=== PATIENT | female | born 1980 | race Caucasian/White ===

== ENCOUNTER → 2017-02-11 | Outpatient (CLI) | payer OTHER ==
--- NOTE | 2017-02-11 13:25 | RAD ---
DATE: 02/11/2017 EXAM: DIGITAL DIAGNOSTIC BILATERAL, BREAST BILATERAL HISTORY: Bilateral breast lumps COMPARISON: None. This is a baseline study This study was interpreted with the benefit of Computerized Aided Detection (CAD). FINDINGS: Breast Density: HETERO The breast parenchyma Is heterogeneiously dense, which could reduce sensitivity of mammography. Breast parenchyma level C. There are areas of increased density seen on the cc views of both breasts and on the MLO view of the left breast. Additional images including a coned compression images of both breasts, rolled cc views of both breasts and an ML view of the left breast were obtained. On the additional views no definite abnormality is seen in the findings on the screening examination are most compatible with ablation artifact. The areas of palpable concern, 3 in the right breast and one on the left were evaluated with targeted ultrasound. In addition to views submitted by the technologist a real-time examination was performed by me. The right breast appears unremarkable. No mass or abnormality is seen. In the left breast there is a single area of slightly diminished echogenicity which is well-defined and has benign imaging characteristics on ultrasound. It is positioned at the 2:00 area of the breast 10 cm from the nipple. Follow-up targeted ultrasound in 6 months is advised. IMPRESSION: Benign mammographic findings. Follow-up mammography in 6 months of both breasts is suggested to establish stability. Follow-up targeted ultrasound of the left breast suggested in 6 months BI-RADS CATEGORY: 3 PROBABLE BENIGN FINDING(S-SHORT INTERVAL FOLLOW-UP SUGGESTED RECOMMENDED FOLLOW-UP: 6M 6 MONTH FOLLOW-UP PQRS compliance statement: Patient information was entered into a reminder system with a target due date August 14, 2017 for the next mammogram. Mammography is a sensitive method for finding small breast cancers, but it does not detect them all and is not a substitute for careful clinical examination. A negative mammogram does not negate a clinically suspicious finding and should not result in delay in biopsying a clinically suspicious abnormality. "Our facility is accredited by the [employer] Mammography Program."
== END | disposition home or self-care (01) ==
LOC: MAMMO 11:59
PROVIDERS: ATTEND General Practice
DX: N63 Unspecified lump in breast (principal)
CPT/HCPCS: 76641; G0204; 77066

== ENCOUNTER 2020-01-24 10:36 | Inpatient (IN) | payer OTHER ==
[~2020-01-24] VITALS: Ht 162.6 cm; Wt 92.5 kg
[2020-01-24] MEDS ORDERED: IV RINGERS,LACTATED 1000ML 1,000 ML IV SCH ×2 (10:42→12:51)
[2020-01-24 11:13] LABS: BILIRUBIN,URINE NEGATIVE (NEG); CLARITY,URINE CLEAR; COLOR,URINE YELLOW; NITRITE,URINE NEGATIVE (NEG); PH,URINE 7.5 (<5.0-8.0); PROTEIN,URINE NEGATIVE (NEG-TRACE); UROBILINOGEN,URINE 0.2 mg/dL (0.2 mg/dL)
[2020-01-24 11:18] LABS: BASO % 0 % (0-3); EOS # 0.1 x10^3/uL (0.0-0.7); EOS % 1 % (0-3); HEMATOCRIT 30.9 % (36.0-47.0); HEMOGLOBIN 10.3 g/dL (12.0-15.5); LYMPH # 1.4 x10^3/uL (1.0-4.8); LYMPH % 14 % (24-48); MEAN CORPUSCULAR HEMOGLOBIN 27 pg (25-35); MEAN CORPUSCULAR HGB CONC 33 g/dL (31-37); MEAN CORPUSCULAR VOLUME 81 fL (79-100); MONO # 0.7 x10^3/uL (0.0-1.1); MONO % 7 % (0-9); NEUT # 7.8 x10^3/uL (1.8-7.7); NEUT % 78 % (31-73); PLATELET COUNT 312 x10^3/uL (140-400); RED BLOOD COUNT 3.82 x10^6/uL (3.50-5.40)
[2020-01-24 11:24] LABS: BACTERIA,URINE FEW /HPF (0-FEW); RBC,URINE 0 /HPF (0-2); SQUAMOUS EPITHELIAL CELL,UR MOD /LPF
[2020-01-24 11:26] LABS: CREATININE,RANDOM URINE 62.7 mg/dL (Not Establ.)
[2020-01-24 11:48] LABS: ALBUMIN 2.5 g/dL (3.4-5.0); ALBUMIN/GLOBULIN RATIO 0.6 (1.0-1.7); CALCIUM 8.4 mg/dL (8.5-10.1); CREATININE 0.7 mg/dL (0.6-1.0); GFR 94.2; POTASSIUM 3.2 mmol/L (3.5-5.1); TOTAL BILIRUBIN 0.4 mg/dL (0.2-1.0); TOTAL PROTEIN 6.8 g/dL (6.4-8.2)
[2020-01-24] MEDS ORDERED: MAGNESIUM SULFATE 20GM 500 ML IV SCH (13:00)
[2020-01-24] MEDS ORDERED: TERBUTALINE 1 MG/ML VIAL. SQ PRN (13:00)
[2020-01-24] MEDS ORDERED: MAGNESIUM SULFATE 2GM 50 ML IV ONE (13:00)
[2020-01-24] MEDS ORDERED: MAGNESIUM SULFATE 4GM 100 ML IV ONE (13:00)
[2020-01-24] MEDS ORDERED: 0.9 % SODIUM CHLORIDE 10 ML DISP.SYRIN. IV PRN (13:00)
[2020-01-24] MEDS ORDERED: ONDANSETRON PF 4 MG/2 ML VIAL. IVP PRN (13:00)
[2020-01-24] MEDS ORDERED: OXYTOCIN 30 UNIT/500 ML PREMIX 500 ML IV PRN ×2 (13:00)
[2020-01-24] MEDS ORDERED: fentaNYL PF VIAL 100 MCG/2 ML VIAL IVP PRN (13:00)
[2020-01-24] MEDS ORDERED: LIDOCAINE 1% PF 30 ML VIAL. INJ PRN (13:00)
--- NOTE | 2020-01-24 13:13 | PDOC1 ---
OB - History Hx of Present Care: Good Care Ultrasounds: Normal mid trimester US Obstetrical Complications: Pre-eclampsia Medical Complications: None Past Family/Social History * Past Medical, Surgical, Family and Obstetric Histories reviewed from chart. Rubella: Immune RPR/VDRL: Negative GBS Status: Negative HBsAG: Negative OB - Chief Complaint & HPI Date of Admission: Date of Admission: Jan 24, 2020 at 10:36 Chief Complaint/History : 9 Para: 1 EGA: 36 Reason for admission: induction of labor (preeclampsia) Indication for induction: other (preeclampsia) Admission Nurse Assessment Rev: Yes OB - Admission Exam Physical Exam HEENT: Normal Heart: Regular Rate Lungs: Clear Abdomen: Gravid, Non tender, Soft Extremities: Edema Reflexes: Normal Cervical Dilatation: None Effacement: 50% Station: -3 Membranes: Intact Heart Rate: Normal Accelerations: Accelerations Present Decelerations: No decelerations Contractions on Admission: None Text A: 36 wks IUP AMA RPL Preeclampsia P: Admit management preeclampsia and induction with cervidil, then pitocin. Give corticosteroids for later lung maturity. Start magnesium sulfate for preeclampsia. SAUNDRA CELIS Jr, MD Jan 24, 2020 13:13
[2020-01-24] MEDS: BETAMET ACET&NA PHOS 30 MG/5 ML VIAL. IM SCH (13:42)
[2020-01-24] MEDS ORDERED: ASPIRIN ENTERIC COATED 81 MG TABLET.DR. PO SCH (14:15)
[2020-01-24 14:23] VITALS: BP 145/78
[2020-01-24] MEDS ORDERED: DINOPROSTONE 10 MG SUPP.VAG VG ONE (17:00)
[2020-01-24] MEDS ORDERED: diphenhydrAMINE HCL 25 MG CAPSULE PO PRN (22:00)
[2020-01-24] MEDS ORDERED: ACETAMINOPHEN 500 MG TABLET PO PRN (22:00)
[2020-01-24] MEDS: BUTALB/APAP/CAFEIN 50/325/40MG TABLET. PO PRN (23:26)
[2020-01-24] MEDS: MAGNESIUM SULFATE 20GM 500 ML IV SCH (23:27)
[2020-01-25] MEDS: BUTALB/APAP/CAFEIN 50/325/40MG TABLET. PO PRN (09:27)
[2020-01-25] MEDS: MAGNESIUM SULFATE 20GM 500 ML IV SCH ×2 (10:27→21:19)
[2020-01-25 11:03] LABS: BASO % 0 % (0-3); EOS % 0 % (0-3); HEMATOCRIT 31.4 % (36.0-47.0); HEMOGLOBIN 10.3 g/dL (12.0-15.5); LYMPH # 1.1 x10^3/uL (1.0-4.8); LYMPH % 9 % (24-48); MEAN CORPUSCULAR HEMOGLOBIN 27 pg (25-35); MEAN CORPUSCULAR HGB CONC 33 g/dL (31-37); MEAN CORPUSCULAR VOLUME 81 fL (79-100); MONO # 0.8 x10^3/uL (0.0-1.1); MONO % 6 % (0-9); NEUT % 85 % (31-73); PLATELET COUNT 328 x10^3/uL (140-400); RED BLOOD COUNT 3.87 x10^6/uL (3.50-5.40); RED CELL DISTRIBUTION WIDTH 13.6 % (11.5-14.5); WHITE BLOOD COUNT 12.9 x10^3/uL (4.0-11.0)
[2020-01-25 11:13] LABS: ALBUMIN 2.4 g/dL (3.4-5.0); ALBUMIN/GLOBULIN RATIO 0.6 (1.0-1.7); CALCIUM 6.7 mg/dL (8.5-10.1); CREATININE 0.7 mg/dL (0.6-1.0); GFR 94.2; TOTAL BILIRUBIN 0.3 mg/dL (0.2-1.0); TOTAL PROTEIN 6.7 g/dL (6.4-8.2)
[2020-01-25 11:14] LABS: POTASSIUM 2.9 mmol/L (3.5-5.1)
[2020-01-25] MEDS: BETAMET ACET&NA PHOS 30 MG/5 ML VIAL. IM SCH (12:51)
[2020-01-25] MEDS ORDERED: CITRIC ACID/SODIUM CITRATE 30 ML SOLUTION. ONE (16:52)
[2020-01-25] MEDS ORDERED: ceFAZolin 2GM PREMIX 2 GM/50 ML BAG IV ONE (17:00)
[2020-01-25] MEDS ORDERED: CITRIC ACID/SODIUM CITRATE 30 ML SOLUTION. PO ONE (17:00)
[2020-01-25] MEDS ORDERED: MORPHINE PF 10 MG/10 ML AMPUL. ONE (17:15)
[2020-01-25] MEDS ORDERED: PHENYLEPHRINE in 0.9% NACL PF 1 MG/10 ML SYRINGE. IV ONE (17:15)
[2020-01-25] MEDS ORDERED: ePHEDrine PF IN SALINE 50 MG/10 ML SYRINGE. IV ONE (17:15)
[2020-01-25] MEDS ORDERED: OXYTOCIN 10 UNIT/ML VIAL. ONE (17:15)
[2020-01-25] MEDS ORDERED: ONDANSETRON PF 4 MG/2 ML VIAL. ONE (17:16)
[2020-01-25] MEDS ORDERED: DEXAMETHASONE SOD PHOS 4 MG/ML VIAL ONE (17:16)
[2020-01-25] MEDS ORDERED: fentaNYL PF VIAL 100 MCG/2 ML VIAL ONE (17:16)
--- NOTE | 2020-01-25 18:22 | PDOC4 ---
OB Operative Note Date: Jan 25, 2020 PRE OP DIAGNOSIS: NRFHT (36 wks IUP, Preeclampsia, Desires BTL) POST OP DIAGNOSIS: Other (Same) OPERATION PERFORMED: L KTCS (and BTL) Surgeon Dr. Parra Anesthesia: Regional (Spinal) Blood Loss 700 ml Specimen placenta and infant OB Findings: Position (Vertex), Sex (Female), (8/9), Weight (6 Lb 4 oz), Nuchal Cord (x1) Complications none Additional Remarks pt. SAUNDRA Gonzalez Jr, MD Jan 25, 2020 18:22
[2020-01-25] MEDS ORDERED: OXYTOCIN 30 UNIT/500 ML PREMIX 500 ML IV PRN (18:30)
[2020-01-25] MEDS ORDERED: DOCUSATE SODIUM 100 MG CAPSULE. PO PRN (18:30)
[2020-01-25] MEDS ORDERED: ZOLPIDEM 5 MG TABLET. PO PRN (18:30)
[2020-01-25] MEDS ORDERED: diphenhydrAMINE ORAL ELIXIR 12.5 MG/5 ML ML PO PRN (18:30)
[2020-01-25] MEDS ORDERED: MAG HYDROX/ALUMINUM HYD/SIMETH 30 ML ORAL.SUSP PO PRN (18:30)
[2020-01-25] MEDS ORDERED: ONDANSETRON PF 4 MG/2 ML VIAL. IV PRN (18:30)
[2020-01-25] MEDS ORDERED: 0.9 % SODIUM CHLORIDE 10 ML DISP.SYRIN. IV PRN (18:30)
[2020-01-25] MEDS ORDERED: SIMETHICONE 80 MG TAB.CHEW PO PRN (18:30)
[2020-01-25] MEDS ORDERED: KETOROLAC 30 MG/ML VIAL. IV PRN (18:45)
--- NOTE | 2020-01-25 18:47 | OP ---
DATE OF SURGERY: 01/25/2020 PREOPERATIVE DIAGNOSES: 1. 36 weeks' intrauterine . 2. Preeclampsia. 3. intolerance to labor. 4. Desires bilateral tubal ligation. POSTOPERATIVE DIAGNOSES: 1. 36 weeks' intrauterine . 2. Preeclampsia. 3. intolerance to labor. 4. Desires bilateral tubal ligation. PROCEDURE: Primary low transverse section and bilateral tubal ligation. SURGEON: Saundra Parra MD ANESTHESIA: Spinal. ESTIMATED BLOOD LOSS: 700 mL. COMPLICATIONS: None. FINDINGS: Viable female infant, Apgars 8 and 9, weight 6 pounds 4 ounces. Three-vessel cord placenta delivered manually intact. Nuchal cord x 1. SUMMARY: A 39-year-old 9, para 1 at 36 weeks, presented for induction due to preeclampsia. The patient had dilated only to 2 cm and began having intolerance of labor. The patient was on magnesium for preeclampsia. She was counseled on the risks, benefits and expectations of primary low transverse section and bilateral tubal ligation as well as the failure rate and voiced clear understanding to proceed. DESCRIPTION OF PROCEDURE: The patient was taken to surgery suite and placed in dorsal supine position. She was prepped with ChloraPrep and draped in sterile fashion. After adequate anesthesia, Pfannenstiel skin incision was made with scalpel down to and through the fascia. The fascia was extended laterally using curved Jeffries scissors. The superior edge of fascia was grasped with two Morales clamps and dissected free of the abdominal rectus muscles using blunt dissection along with Bovie cautery. The same process took place inferiorly. The abdominal rectus muscle dissected bluntly at the midline. The peritoneum was grasped with 2 hemostats and entered sharply with Metzenbaum scissors. This incision was extended superiorly as well as inferiorly using Metzenbaum scissors. The Amado ring retractor was placed. A low transverse hysterotomy incision was made with scalpel down to the infant. Hysterotomy incision was extended laterally and superiorly digitally. With the aid of fundal pressure, the 's head was delivered in a smooth atraumatic manner. Nuchal cord x 1 was visualized and reduced. With additional fundal pressure, the anterior shoulder was delivered followed by posterior shoulder and rest of female was delivered. The was suctioned with a bulb syringe orally and nasally, umbilical cord was clamped twice and cut and viable female infant was handed to waiting nursing staff. Umbilical cord blood as well as arterial pH were obtained. Three-vessel cord placenta was delivered manually intact. The uterus was then exteriorized and cleared of clot and debris with a moist lap. Hysterotomy incision was reapproximated using #1 Vicryl suture in running locked fashion. The uterus palpated firm. Fallopian tubes and ovaries appeared normal bilaterally. The right fallopian tube was grasped with a Lore, undermined in the mesosalpinx with Bovie cautery. Proximal and distal ends of the fallopian tube were tied with plain gut suture. The mid section of fallopian tube was excised using Metzenbaum scissors. Two telescoping ends were visualized and hemostatic. Same process took place with left adnexa. The uterus was then returned to the abdomen. Pericolic gutters were cleared of clot and debris with moist lap. Hysterotomy incision was reviewed. [id number] suture was placed in the midline of the hysterotomy incision for better hemostasis. The Amado ring retractor was removed. The peritoneum was reapproximated with #1 Vicryl suture in running fashion. Abdominal rectus muscle was reapproximated using #1 Vicryl suture in running fashion. The fascia was reapproximated using Stratafix in a running fashion. Skin was reapproximated using 4-0 Vicryl suture in subcuticular manner. The patient tolerated the procedure well and was taken to recovery room in stable condition. Sponge and needle count correct x 3. SAUNDRA PARRA MD DR: REGINE/lorie JOB#: [id number] / [id number]
[2020-01-25 20:35] VITALS: BP 137/69
[2020-01-25 21:45] VITALS: BP 133/69
[2020-01-25 22:45] VITALS: BP 103/51
[2020-01-25 23:45] VITALS: BP 131/58
[2020-01-26] MEDS: KETOROLAC 30 MG/ML VIAL. IV PRN ×3 (00:06→17:59)
[2020-01-26 00:45] VITALS: BP 130/68
[2020-01-26 02:45] VITALS: BP 104/66
[2020-01-26 03:45] VITALS: BP 118/64
[2020-01-26 04:34] LABS: BASO % 0 % (0-3); EOS % 0 % (0-3); HEMATOCRIT 26.6 % (36.0-47.0); HEMOGLOBIN 8.7 g/dL (12.0-15.5); LYMPH # 1.2 x10^3/uL (1.0-4.8); LYMPH % 6 % (24-48); MEAN CORPUSCULAR HEMOGLOBIN 27 pg (25-35); MEAN CORPUSCULAR HGB CONC 33 g/dL (31-37); MEAN CORPUSCULAR VOLUME 82 fL (79-100); MONO # 1.1 x10^3/uL (0.0-1.1); MONO % 5 % (0-9); NEUT # 18.5 x10^3/uL (1.8-7.7); NEUT % 89 % (31-73); PLATELET COUNT 318 x10^3/uL (140-400); RED BLOOD COUNT 3.26 x10^6/uL (3.50-5.40); RED CELL DISTRIBUTION WIDTH 13.4 % (11.5-14.5); WHITE BLOOD COUNT 20.8 x10^3/uL (4.0-11.0)
[2020-01-26 04:45] VITALS: BP 106/77
[2020-01-26 04:49] LABS: ALBUMIN/GLOBULIN RATIO 0.5 (1.0-1.7); CALCIUM 6.7 mg/dL (8.5-10.1); CREATININE 0.8 mg/dL (0.6-1.0); GFR 80.7; POTASSIUM 3.5 mmol/L (3.5-5.1); TOTAL BILIRUBIN 0.2 mg/dL (0.2-1.0); TOTAL PROTEIN 5.9 g/dL (6.4-8.2)
[2020-01-26 05:06] LABS: % BANDS 1 % (0-9); % LYMPHS 6 % (24-48); % METAS 1 % (0-0); % SEGS 92 % (35-66); PLT ESTIMATE ADEQUATE (ADEQUATE); TOXIC GRANULATION SLIGHT
[2020-01-26] MEDS: BUTALB/APAP/CAFEIN 50/325/40MG TABLET. PO PRN (05:39)
[2020-01-26 05:45] VITALS: BP 127/67
[2020-01-26 06:45] VITALS: BP 114/61
[2020-01-26] MEDS ORDERED: fentaNYL PF VIAL 100 MCG/2 ML VIAL IV PRN ×2 (07:00)
[2020-01-26] MEDS ORDERED: HYDROmorphone 2 MG/ML VIAL IV PRN (07:00)
[2020-01-26] MEDS ORDERED: IV RINGERS,LACTATED 1000ML 1,000 ML IV SCH (07:00)
[2020-01-26] MEDS ORDERED: ONDANSETRON PF 4 MG/2 ML VIAL. IV PRN (07:00)
[2020-01-26] MEDS ORDERED: LIDOCAINE 1% PF 2 ML VIAL. ID PRN (07:00)
[2020-01-26] MEDS ORDERED: MORPHINE SULFATE 2 MG/ML VIAL. IV PRN (07:00)
[2020-01-26] MEDS ORDERED: PROCHLORPERAZINE 10 MG/2 ML VIAL. IV PRN (07:00)
--- NOTE | 2020-01-26 08:43 | PDOC ---
OB Progress Note Date of Service 01/26/20 Time of Evaluation 0840 Notes Pt. feeling well. No complaints. Lab Laboratory Tests Test 01/24/20 10:43 01/24/20 11:00 01/24/20 13:15 01/24/20 14:50 Urine Collection Type Unknown Urine Color Yellow Urine Clarity Clear Urine pH 7.5 (<5.0-8.0) Urine Specific Adrian 1.010 (1.000-1.030) Urine Protein Negative mg/dL (NEG-TRACE) Urine Glucose (UA) Negative mg/dL (NEG) Urine Ketones (Stick) Negative mg/dL (NEG) Urine Blood Negative (NEG) Urine Nitrite Negative (NEG) Urine Bilirubin Negative (NEG) Urine Urobilinogen Dipstick 0.2 mg/dL (0.2 mg/dL) Urine Leukocyte Esterase Moderate (NEG) Urine RBC 0 /HPF (0-2) Urine WBC 5-10 /HPF (0-4) Urine Squamous Epithelial Cells Mod /LPF Urine Bacteria Few /HPF (0-FEW) Urine Mucus Slight /LPF Urine Random Creatinine 62.7 mg/dL (Not Establ.) Urine Random Total Protein 16.0 mg/dL (Not Establ.) Urine Protein/Creatinine Ratio 255 mg/g (0-200) White Blood Count 10.0 x10^3/uL (4.0-11.0) Red Blood Count 3.82 x10^6/uL (3.50-5.40) Hemoglobin 10.3 g/dL (12.0-15.5) Hematocrit 30.9 % (36.0-47.0) Mean Corpuscular Volume 81 fL (79-100) Mean Corpuscular Hemoglobin 27 pg (25-35) Mean Corpuscular Hemoglobin Concent 33 g/dL (31-37) Red Cell Distribution Width 13.0 % (11.5-14.5) Platelet Count 312 x10^3/uL (140-400) Neutrophils (%) (Auto) 78 % (31-73) Lymphocytes (%) (Auto) 14 % (24-48) Monocytes (%) (Auto) 7 % (0-9) Eosinophils (%) (Auto) 1 % (0-3) Basophils (%) (Auto) 0 % (0-3) Neutrophils # (Auto) 7.8 x10^3/uL (1.8-7.7) Lymphocytes # (Auto) 1.4 x10^3/uL (1.0-4.8) Monocytes # (Auto) 0.7 x10^3/uL (0.0-1.1) Eosinophils # (Auto) 0.1 x10^3/uL (0.0-0.7) Basophils # (Auto) 0.0 x10^3/uL (0.0-0.2) Sodium Level 139 mmol/L (136-145) Potassium Level 3.2 mmol/L (3.5-5.1) Chloride Level 105 mmol/L (98-107) Carbon Dioxide Level 22 mmol/L (21-32) Anion Gap 12 (6-14) Blood Urea Nitrogen 6 mg/dL (7-20) Creatinine 0.7 mg/dL (0.6-1.0) Estimated GFR (Cockcroft-Gault) 94.2 BUN/Creatinine Ratio 9 (6-20) Glucose Level 89 mg/dL (70-99) Calcium Level 8.4 mg/dL (8.5-10.1) Total Bilirubin 0.4 mg/dL (0.2-1.0) Aspartate Amino Transf (AST/SGOT) 18 U/L (15-37) Alanine Aminotransferase (ALT/SGPT) 16 U/L (14-59) Alkaline Phosphatase 175 U/L (46-116) Total Protein 6.8 g/dL (6.4-8.2) Albumin 2.5 g/dL (3.4-5.0) Albumin/Globulin Ratio 0.6 (1.0-1.7) Treponema pallidum Antibody Nonreactive (Nonreactive) Coronavirus (PCR) Not detected (Not Detected) SARS-CoV-2 Antigen (Rapid) Negative (NEGATIVE) Test 01/25/20 10:23 01/26/20 03:20 White Blood Count 12.9 x10^3/uL (4.0-11.0) 20.8 x10^3/uL (4.0-11.0) Red Blood Count 3.87 x10^6/uL (3.50-5.40) 3.26 x10^6/uL (3.50-5.40) Hemoglobin 10.3 g/dL (12.0-15.5) 8.7 g/dL (12.0-15.5) Hematocrit 31.4 % (36.0-47.0) 26.6 % (36.0-47.0) Mean Corpuscular Volume 81 fL (79-100) 82 fL (79-100) Mean Corpuscular Hemoglobin 27 pg (25-35) 27 pg (25-35) Mean Corpuscular Hemoglobin Concent 33 g/dL (31-37) 33 g/dL (31-37) Red Cell Distribution Width 13.6 % (11.5-14.5) 13.4 % (11.5-14.5) Platelet Count 328 x10^3/uL (140-400) 318 x10^3/uL (140-400) Neutrophils (%) (Auto) 85 % (31-73) 89 % (31-73) Lymphocytes (%) (Auto) 9 % (24-48) 6 % (24-48) Monocytes (%) (Auto) 6 % (0-9) 5 % (0-9) Eosinophils (%) (Auto) 0 % (0-3) 0 % (0-3) Basophils (%) (Auto) 0 % (0-3) 0 % (0-3) Neutrophils # (Auto) 11.0 x10^3/uL (1.8-7.7) 18.5 x10^3/uL (1.8-7.7) Lymphocytes # (Auto) 1.1 x10^3/uL (1.0-4.8) 1.2 x10^3/uL (1.0-4.8) Monocytes # (Auto) 0.8 x10^3/uL (0.0-1.1) 1.1 x10^3/uL (0.0-1.1) Eosinophils # (Auto) 0.0 x10^3/uL (0.0-0.7) 0.0 x10^3/uL (0.0-0.7) Basophils # (Auto) 0.0 x10^3/uL (0.0-0.2) 0.0 x10^3/uL (0.0-0.2) Sodium Level 140 mmol/L (136-145) 135 mmol/L (136-145) Potassium Level 2.9 mmol/L (3.5-5.1) 3.5 mmol/L (3.5-5.1) Chloride Level 105 mmol/L (98-107) 102 mmol/L (98-107) Carbon Dioxide Level 23 mmol/L (21-32) 22 mmol/L (21-32) Anion Gap 12 (6-14) 11 (6-14) Blood Urea Nitrogen 4 mg/dL (7-20) 4 mg/dL (7-20) Creatinine 0.7 mg/dL (0.6-1.0) 0.8 mg/dL (0.6-1.0) Estimated GFR (Cockcroft-Gault) 94.2 80.7 BUN/Creatinine Ratio 6 (6-20) 5 (6-20) Glucose Level 119 mg/dL (70-99) 115 mg/dL (70-99) Calcium Level 6.7 mg/dL (8.5-10.1) 6.7 mg/dL (8.5-10.1) Total Bilirubin 0.3 mg/dL (0.2-1.0) 0.2 mg/dL (0.2-1.0) Aspartate Amino Transf (AST/SGOT) 15 U/L (15-37) 19 U/L (15-37) Alanine Aminotransferase (ALT/SGPT) 14 U/L (14-59) 9 U/L (14-59) Alkaline Phosphatase 168 U/L (46-116) 148 U/L (46-116) Total Protein 6.7 g/dL (6.4-8.2) 5.9 g/dL (6.4-8.2) Albumin 2.4 g/dL (3.4-5.0) 2.0 g/dL (3.4-5.0) Albumin/Globulin Ratio 0.6 (1.0-1.7) 0.5 (1.0-1.7) Segmented Neutrophils % 92 % (35-66) Band Neutrophils % 1 % (0-9) Lymphocytes % 6 % (24-48) Metamyelocytes % 1 % (0-0) Toxic Granulation Slight Platelet Estimate Adequate (ADEQUATE) Laboratory Tests Test 01/25/20 10:23 01/26/20 03:20 White Blood Count 12.9 x10^3/uL (4.0-11.0) 20.8 x10^3/uL (4.0-11.0) Red Blood Count 3.87 x10^6/uL (3.50-5.40) 3.26 x10^6/uL (3.50-5.40) Hemoglobin 10.3 g/dL (12.0-15.5) 8.7 g/dL (12.0-15.5) Hematocrit 31.4 % (36.0-47.0) 26.6 % (36.0-47.0) Mean Corpuscular Volume 81 fL (79-100) 82 fL (79-100) Mean Corpuscular Hemoglobin 27 pg (25-35) 27 pg (25-35) Mean Corpuscular Hemoglobin Concent 33 g/dL (31-37) 33 g/dL (31-37) Red Cell Distribution Width 13.6 % (11.5-14.5) 13.4 % (11.5-14.5) Platelet Count 328 x10^3/uL (140-400) 318 x10^3/uL (140-400) Neutrophils (%) (Auto) 85 % (31-73) 89 % (31-73) Lymphocytes (%) (Auto) 9 % (24-48) 6 % (24-48) Monocytes (%) (Auto) 6 % (0-9) 5 % (0-9) Eosinophils (%) (Auto) 0 % (0-3) 0 % (0-3) Basophils (%) (Auto) 0 % (0-3) 0 % (0-3) Neutrophils # (Auto) 11.0 x10^3/uL (1.8-7.7) 18.5 x10^3/uL (1.8-7.7) Lymphocytes # (Auto) 1.1 x10^3/uL (1.0-4.8) 1.2 x10^3/uL (1.0-4.8) Monocytes # (Auto) 0.8 x10^3/uL (0.0-1.1) 1.1 x10^3/uL (0.0-1.1) Eosinophils # (Auto) 0.0 x10^3/uL (0.0-0.7) 0.0 x10^3/uL (0.0-0.7) Basophils # (Auto) 0.0 x10^3/uL (0.0-0.2) 0.0 x10^3/uL (0.0-0.2) Sodium Level 140 mmol/L (136-145) 135 mmol/L (136-145) Potassium Level 2.9 mmol/L (3.5-5.1) 3.5 mmol/L (3.5-5.1) Chloride Level 105 mmol/L (98-107) 102 mmol/L (98-107) Carbon Dioxide Level 23 mmol/L (21-32) 22 mmol/L (21-32) Anion Gap 12 (6-14) 11 (6-14) Blood Urea Nitrogen 4 mg/dL (7-20) 4 mg/dL (7-20) Creatinine 0.7 mg/dL (0.6-1.0) 0.8 mg/dL (0.6-1.0) Estimated GFR (Cockcroft-Gault) 94.2 80.7 BUN/Creatinine Ratio 6 (6-20) 5 (6-20) Glucose Level 119 mg/dL (70-99) 115 mg/dL (70-99) Calcium Level 6.7 mg/dL (8.5-10.1) 6.7 mg/dL (8.5-10.1) Total Bilirubin 0.3 mg/dL (0.2-1.0) 0.2 mg/dL (0.2-1.0) Aspartate Amino Transf (AST/SGOT) 15 U/L (15-37) 19 U/L (15-37) Alanine Aminotransferase (ALT/SGPT) 14 U/L (14-59) 9 U/L (14-59) Alkaline Phosphatase 168 U/L (46-116) 148 U/L (46-116) Total Protein 6.7 g/dL (6.4-8.2) 5.9 g/dL (6.4-8.2) Albumin 2.4 g/dL (3.4-5.0) 2.0 g/dL (3.4-5.0) Albumin/Globulin Ratio 0.6 (1.0-1.7) 0.5 (1.0-1.7) Segmented Neutrophils % 92 % (35-66) Band Neutrophils % 1 % (0-9) Lymphocytes % 6 % (24-48) Metamyelocytes % 1 % (0-0) Toxic Granulation Slight Platelet Estimate Adequate (ADEQUATE) Medications Current Medications Ringer's Solution 1,000 ml @ 125 mls/hr Q8H IV Last administered on 01/24/20at 13:41; Start 01/24/20 at 10:42 Sodium Chloride (Normal Saline Flush) 3 ml QSHIFT PRN IV AFTER MEDS AND BLOOD DRAWS; Start 01/24/20 at 13:00; Stop 01/25/20 at 18:35; Status DC Ringer's Solution 1,000 ml @ 125 mls/hr Q8H IV Last administered on 01/24/20at 21:37; Start 01/24/20 at 12:51 Fentanyl Citrate (Fentanyl 2ml Vial) 100 mcg PRN Q20MIN PRN IVP Labor pain Last administered on 01/25/20at 16:01; Start 01/24/20 at 13:00 Ondansetron HCl (Zofran) 4 mg PRN Q4HRS PRN IVP NAUSEA/VOMITING; Start 01/24/20 at 13:00; Stop 01/25/20 at 18:35; Status DC Terbutaline Sulfate (Brethine) 0.25 mg 1X PRN PRN SQ SEE COMMENTS; Start 01/24/20 at 13:00; Stop 01/25/20 at 12:59; Status DC Lidocaine HCl (Xylocaine 1% Pf 30ml Vial) 30 ml 1X PRN PRN INJ SEE COMMENTS; Start 01/24/20 at 13:00; Stop 01/26/20 at 12:59 Oxytocin/Sodium Chloride 500 ml @ 0 mls/hr CONT PRN IV SEE I/O RECORD Last administered on 01/25/20at 06:04; Start 01/24/20 at 13:00 Oxytocin/Sodium Chloride 500 ml @ 0 mls/hr CONT PRN PRN IV Post delivery bleeding; Start 01/24/20 at 13:00 Magnesium Sulfate 500 ml @ 0 mls/hr Q0M IV ; Start 01/24/20 at 13:00; Stop 01/24/20 at 14:05; Status DC Magnesium Sulfate 50 ml @ 25 mls/hr 1X ONCE IV Last administered on 01/24/20at 13:42; Start 01/24/20 at 13:00; Stop 01/24/20 at 14:59; Status DC Magnesium Sulfate 100 ml @ 25 mls/hr 1X ONCE IV Last administered on 01/24/20at 13:43; Start 01/24/20 at 13:00; Stop 01/24/20 at 16:59; Status DC Betamethasone Sodium Phosphate (Celestone Soluspan) 12 mg Q24H IM Last administered on 01/25/20at 12:51; Start 01/24/20 at 13:30; Stop 01/26/20 at 13:29 Magnesium Sulfate 500 ml @ 50 mls/hr Q10H IV Last administered on 01/25/20at 21:19; Start 01/24/20 at 14:00 Aspirin (Ecotrin) 81 mg DAILYWBKFT PO ; Start 01/24/20 at 14:15; Stop 01/27/20 at 08:20 Dinoprostone (Cervidil) 10 mg 1X ONCE VG Last administered on 01/24/20at 17:30; Start 01/24/20 at 17:00; Stop 01/24/20 at 17:01; Status DC Diphenhydramine HCl (Benadryl) 50 mg PRN QHS PRN PO INSOMNIA Last administered on 01/24/20at 22:02; Start 01/24/20 at 22:00 Acetaminophen (Tylenol) 1,000 mg PRN Q6HRS PRN PO HEADACHE Last administered on 01/24/20at 22:02; Start 01/24/20 at 22:00 Acetaminophen/ Butalbital/ Caffeine (Fioricet) 2 tab PRN Q6HRS PRN PO MIGRAINE HEADACHE Last administered on 01/26/20at 05:39; Start 01/24/20 at 23:15 Ondansetron HCl (Zofran) 4 mg PRN Q6HRS PRN IV NAUSEA/VOMITING Last administered on 01/25/20at 16:02; Start 01/26/20 at 07:00; Stop 01/25/20 at 18:35; Status DC Fentanyl Citrate (Fentanyl 2ml Vial) 25 mcg PRN Q5MIN PRN IV MILD PAIN 1-3; Start 01/26/20 at 07:00; Stop 01/26/20 at 20:00 Fentanyl Citrate (Fentanyl 2ml Vial) 50 mcg PRN Q5MIN PRN IV MODERATE TO SEVERE PAIN; Start 01/26/20 at 07:00; Stop 01/26/20 at 20:00 Morphine Sulfate (Morphine Sulfate) 1 mg PRN Q10MIN PRN IV SEVERE PAIN 7-10; Start 01/26/20 at 07:00; Stop 01/26/20 at 20:00 Ringer's Solution 1,000 ml @ 30 mls/hr Q24H IV ; Start 01/26/20 at 07:00; Stop 01/26/20 at 18:59 Lidocaine HCl (Xylocaine-Mpf 1% 2ml Vial) 2 ml PRN 1X PRN ID PRIOR TO IV START; Start 01/26/20 at 07:00; Stop 01/26/20 at 20:00 Hydromorphone HCl (Dilaudid) 0.5 mg PRN Q10MIN PRN IV SEV PAIN, Second choice; Start 01/26/20 at 07:00; Stop 01/26/20 at 20:00 Prochlorperazine Edisylate (Compazine) 5 mg PACU PRN PRN IV NAUSEA, MRX1; Start 01/26/20 at 07:00; Stop 01/26/20 at 20:00 Cefazolin Sodium/ Dextrose 50 ml @ 100 mls/hr 1X ONCE IV ; Start 01/25/20 at 17:00; Stop 01/25/20 at 17:29; Status DC Citric Acid/ Sodium Citrate (Bicitra) 30 ml 1X ONCE PO ; Start 01/25/20 at 17:00; Stop 01/25/20 at 17:01; Status DC Citric Acid/ Sodium Citrate (Bicitra) 30 ml STK-MED ONCE .ROUTE ; Start 01/25/20 at 16:52; Stop 01/25/20 at 16:52; Status DC Phenylephrine HCl (PHENYLEPHRINE in 0.9% NACL PF) 1 mg STK-MED ONCE IV ; Start 01/25/20 at 17:15; Stop 01/25/20 at 17:16; Status DC Oxytocin (Pitocin) 10 unit STK-MED ONCE .ROUTE ; Start 01/25/20 at 17:15; Stop 01/25/20 at 17:16; Status DC Ephedrine Sulfate (ePHEDrine PF IN SALINE SYRINGE) 50 mg STK-MED ONCE IV ; Start 01/25/20 at 17:15; Stop 01/25/20 at 17:16; Status DC Morphine Sulfate (Morphine Preservative Free) 10 mg STK-MED ONCE .ROUTE ; Start 01/25/20 at 17:15; Stop 01/25/20 at 17:16; Status DC Fentanyl Citrate (Fentanyl 2ml Vial) 100 mcg STK-MED ONCE .ROUTE ; Start 01/25/20 at 17:16; Stop 01/25/20 at 17:16; Status DC Dexamethasone Sodium Phosphate (Decadron) 4 mg STK-MED ONCE .ROUTE ; Start 01/25/20 at 17:16; Stop 01/25/20 at 17:17; Status DC Ondansetron HCl (Zofran) 4 mg STK-MED ONCE .ROUTE ; Start 01/25/20 at 17:16; Stop 01/25/20 at 17:17; Status DC Sodium Chloride (Normal Saline Flush) 3 ml QSHIFT PRN IV AFTER MEDS AND BLOOD DRAWS; Start 01/25/20 at 18:30 Oxytocin/Sodium Chloride 500 ml @ 125 mls/hr CONT PRN IV EXCESSIVE POST- BLEEDING; Start 01/25/20 at 18:30; Stop 01/26/20 at 02:29; Status DC Ibuprofen (Motrin) 800 mg PRN Q8HRS PRN PO INFLAMMATION; Start 01/25/20 at 18:30 Ondansetron HCl (Zofran) 4 mg PRN Q6HRS PRN IV NAUSEA/VOMITING; Start 01/25/20 at 18:30 Docusate Sodium (Colace) 100 mg PRN BID PRN PO HARD STOOL; Start 01/25/20 at 18:30 Al Hydroxide/Mg Hydroxide (Mylanta Plus Xs) 30 ml PRN Q4HRS PRN PO HEARTBURN / GAS; Start 01/25/20 at 18:30 Simethicone (Gas-X) 80 mg PRN AFTMEALHC PRN PO GAS / BLOATING; Start 01/25/20 at 18:30 Diphenhydramine HCl (Benadryl Oral Elixir) 12.5 mg PRN Q6HRS PRN PO ITCHING; Start 01/25/20 at 18:30 Ferrous Sulfate (Feosol) 325 mg BIDWMEALS PO ; Start 7/23/20 at 08:00 Zolpidem Tartrate (Ambien) 5 mg PRN QHS PRN PO INSOMNIA, MAY REPEAT X1; Start 01/25/20 at 18:30 Oxycodone/ Acetaminophen (Percocet 5/325) 2 tab PRN Q4HRS PRN PO MODERATE PAIN, SEVERE PAIN; Start 01/25/20 at 18:30 Ketorolac Tromethamine (Toradol 30mg Vial) 30 mg PRN Q6HRS PRN IV PAIN Last adm inistered on 01/26/20at 00:06; Start 01/25/20 at 18:30; Stop 01/30/20 at 18:29 Multivitamins (Thera M Plus) 1 tab DAILY PO ; Start 01/26/20 at 09:00 Ketorolac Tromethamine (Toradol 30mg Vial) 30 mg PRN Q6HRS PRN IV PAIN; Start 01/25/20 at 18:45; Stop 01/25/20 at 18:36; Status DC Exam Abd: soft, mild tenderness, fundus firm Incision site: clean, dry and intact Assessment POD#1 s/p c/s and BTL Preeclampsia: improving. Plan of Care: Continue current Tx, Mgmt (D/c magnesium sulfate at 24 hour from delivery.) SAUNDRA CELIS Jr, MD Jan 26, 2020 08:43
[2020-01-26] MEDS: MAGNESIUM SULFATE 20GM 500 ML IV SCH (08:52)
[2020-01-26] MEDS ORDERED: MULTIVITAMIN with MINERAL TABLET. PO SCH (09:00)
[2020-01-26] MEDS: oxyCODONE/APAP 5/325 1 TAB TABLET PO PRN (17:56)
[2020-01-27] VITALS (8 sets, daily range): BP systolic 100–159; BP diastolic 53–87
[2020-01-27] MEDS: oxyCODONE/APAP 5/325 1 TAB TABLET PO PRN ×3 (00:40→20:00)
[2020-01-27] MEDS: IBUPROFEN 400 MG TABLET. PO PRN ×3 (06:46→23:43)
[2020-01-27] MEDS: FERROUS SULFATE 325 MG TABLET. PO SCH ×2 (08:23→17:34)
--- NOTE | 2020-01-27 13:08 | PDOC ---
OB Progress Note Date of Service 01/27/20 Time of Evaluation 1305 Notes Pt. feeling well. No complaints. Lab Laboratory Tests Test 01/26/20 03:20 White Blood Count 20.8 x10^3/uL (4.0-11.0) Red Blood Count 3.26 x10^6/uL (3.50-5.40) Hemoglobin 8.7 g/dL (12.0-15.5) Hematocrit 26.6 % (36.0-47.0) Mean Corpuscular Volume 82 fL (79-100) Mean Corpuscular Hemoglobin 27 pg (25-35) Mean Corpuscular Hemoglobin Concent 33 g/dL (31-37) Red Cell Distribution Width 13.4 % (11.5-14.5) Platelet Count 318 x10^3/uL (140-400) Neutrophils (%) (Auto) 89 % (31-73) Lymphocytes (%) (Auto) 6 % (24-48) Monocytes (%) (Auto) 5 % (0-9) Eosinophils (%) (Auto) 0 % (0-3) Basophils (%) (Auto) 0 % (0-3) Neutrophils # (Auto) 18.5 x10^3/uL (1.8-7.7) Lymphocytes # (Auto) 1.2 x10^3/uL (1.0-4.8) Monocytes # (Auto) 1.1 x10^3/uL (0.0-1.1) Eosinophils # (Auto) 0.0 x10^3/uL (0.0-0.7) Basophils # (Auto) 0.0 x10^3/uL (0.0-0.2) Segmented Neutrophils % 92 % (35-66) Band Neutrophils % 1 % (0-9) Lymphocytes % 6 % (24-48) Metamyelocytes % 1 % (0-0) Toxic Granulation Slight Platelet Estimate Adequate (ADEQUATE) Sodium Level 135 mmol/L (136-145) Potassium Level 3.5 mmol/L (3.5-5.1) Chloride Level 102 mmol/L (98-107) Carbon Dioxide Level 22 mmol/L (21-32) Anion Gap 11 (6-14) Blood Urea Nitrogen 4 mg/dL (7-20) Creatinine 0.8 mg/dL (0.6-1.0) Estimated GFR (Cockcroft-Gault) 80.7 BUN/Creatinine Ratio 5 (6-20) Glucose Level 115 mg/dL (70-99) Calcium Level 6.7 mg/dL (8.5-10.1) Total Bilirubin 0.2 mg/dL (0.2-1.0) Aspartate Amino Transf (AST/SGOT) 19 U/L (15-37) Alanine Aminotransferase (ALT/SGPT) 9 U/L (14-59) Alkaline Phosphatase 148 U/L (46-116) Total Protein 5.9 g/dL (6.4-8.2) Albumin 2.0 g/dL (3.4-5.0) Albumin/Globulin Ratio 0.5 (1.0-1.7) Medications Current Medications Ringer's Solution 1,000 ml @ 125 mls/hr Q8H IV Last administered on 01/24/20at 13:41; Start 01/24/20 at 10:42 Sodium Chloride (Normal Saline Flush) 3 ml QSHIFT PRN IV AFTER MEDS AND BLOOD DRAWS; Start 01/24/20 at 13:00; Stop 01/25/20 at 18:35; Status DC Ringer's Solution 1,000 ml @ 125 mls/hr Q8H IV Last administered on 01/24/20at 21:37; Start 01/24/20 at 12:51 Fentanyl Citrate (Fentanyl 2ml Vial) 100 mcg PRN Q20MIN PRN IVP Labor pain Last administered on 01/25/20at 16:01; Start 01/24/20 at 13:00 Ondansetron HCl (Zofran) 4 mg PRN Q4HRS PRN IVP NAUSEA/VOMITING; Start 01/24/20 at 13:00; Stop 01/25/20 at 18:35; Status DC Terbutaline Sulfate (Brethine) 0.25 mg 1X PRN PRN SQ SEE COMMENTS; Start 01/24/20 at 13:00; Stop 01/25/20 at 12:59; Status DC Lidocaine HCl (Xylocaine 1% Pf 30ml Vial) 30 ml 1X PRN PRN INJ SEE COMMENTS; Start 01/24/20 at 13:00; Stop 01/26/20 at 12:59; Status DC Oxytocin/Sodium Chloride 500 ml @ 0 mls/hr CONT PRN IV SEE I/O RECORD Last administered on 01/25/20at 06:04; Start 01/24/20 at 13:00 Oxytocin/Sodium Chloride 500 ml @ 0 mls/hr CONT PRN PRN IV Post delivery bleeding; Start 01/24/20 at 13:00 Magnesium Sulfate 500 ml @ 0 mls/hr Q0M IV ; Start 01/24/20 at 13:00; Stop 01/24/20 at 14:05; Status DC Magnesium Sulfate 50 ml @ 25 mls/hr 1X ONCE IV Last administered on 01/24/20at 13:42; Start 01/24/20 at 13:00; Stop 01/24/20 at 14:59; Status DC Magnesium Sulfate 100 ml @ 25 mls/hr 1X ONCE IV Last administered on 01/24/20at 13:43; Start 01/24/20 at 13:00; Stop 01/24/20 at 16:59; Status DC Betamethasone Sodium Phosphate (Celestone Soluspan) 12 mg Q24H IM Last administered on 01/25/20at 12:51; Start 01/24/20 at 13:30; Stop 01/26/20 at 13:29; Status DC Magnesium Sulfate 500 ml @ 50 mls/hr Q10H IV Last administered on 01/26/20at 08:52; Start 01/24/20 at 14:00 Aspirin (Ecotrin) 81 mg DAILYWBKFT PO Last administered on 01/26/20at 09:33; Start 01/24/20 at 14:15; Stop 01/27/20 at 08:20; Status DC Dinoprostone (Cervidil) 10 mg 1X ONCE VG Last administered on 01/24/20at 17:30; Start 01/24/20 at 17:00; Stop 01/24/20 at 17:01; Status DC Diphenhydramine HCl (Benadryl) 50 mg PRN QHS PRN PO INSOMNIA 1ST CHOICE Last administered on 01/24/20at 22:02; Start 01/24/20 at 22:00 Acetaminophen (Tylenol) 1,000 mg PRN Q6HRS PRN PO HEADACHE Last administered on 01/24/20at 22:02; Start 01/24/20 at 22:00 Acetaminophen/ Butalbital/ Caffeine (Fioricet) 2 tab PRN Q6HRS PRN PO MIGRAINE HEADACHE Last administered on 01/26/20at 05:39; Start 01/24/20 at 23:15 Ondansetron HCl (Zofran) 4 mg PRN Q6HRS PRN IV NAUSEA/VOMITING Last administered on 01/25/20at 16:02; Start 01/26/20 at 07:00; Stop 01/25/20 at 18:35; Status DC Fentanyl Citrate (Fentanyl 2ml Vial) 25 mcg PRN Q5MIN PRN IV MILD PAIN 1-3; Start 01/26/20 at 07:00; Stop 01/26/20 at 20:00; Status DC Fentanyl Citrate (Fentanyl 2ml Vial) 50 mcg PRN Q5MIN PRN IV MODERATE TO SEVERE PAIN; Start 01/26/20 at 07:00; Stop 01/26/20 at 20:00; Status DC Morphine Sulfate (Morphine Sulfate) 1 mg PRN Q10MIN PRN IV SEVERE PAIN 7-10; Start 01/26/20 at 07:00; Stop 01/26/20 at 20:00; Status DC Ringer's Solution 1,000 ml @ 30 mls/hr Q24H IV ; Start 01/26/20 at 07:00; Stop 01/26/20 at 18:59; Status DC Lidocaine HCl (Xylocaine-Mpf 1% 2ml Vial) 2 ml PRN 1X PRN ID PRIOR TO IV START; Start 01/26/20 at 07:00; Stop 01/26/20 at 20:00; Status DC Hydromorphone HCl (Dilaudid) 0.5 mg PRN Q10MIN PRN IV SEV PAIN, Second choice; Start 01/26/20 at 07:00; Stop 01/26/20 at 20:00; Status DC Prochlorperazine Edisylate (Compazine) 5 mg PACU PRN PRN IV NAUSEA, MRX1; Start 01/26/20 at 07:00; Stop 01/26/20 at 20:00; Status DC Cefazolin Sodium/ Dextrose 50 ml @ 100 mls/hr 1X ONCE IV ; Start 01/25/20 at 17:00; Stop 01/25/20 at 17:29; Status DC Citric Acid/ Sodium Citrate (Bicitra) 30 ml 1X ONCE PO ; Start 01/25/20 at 17:00; Stop 01/25/20 at 17:01; Status DC Citric Acid/ Sodium Citrate (Bicitra) 30 ml STK-MED ONCE .ROUTE ; Start 01/25/20 at 16:52; Stop 01/25/20 at 16:52; Status DC Phenylephrine HCl (PHENYLEPHRINE in 0.9% NACL PF) 1 mg STK-MED ONCE IV ; Start 01/25/20 at 17:15; Stop 01/25/20 at 17:16; Status DC Oxytocin (Pitocin) 10 unit STK-MED ONCE .ROUTE ; Start 01/25/20 at 17:15; Stop 01/25/20 at 17:16; Status DC Ephedrine Sulfate (ePHEDrine PF IN SALINE SYRINGE) 50 mg STK-MED ONCE IV ; Start 01/25/20 at 17:15; Stop 01/25/20 at 17:16; Status DC Morphine Sulfate (Morphine Preservative Free) 10 mg STK-MED ONCE .ROUTE ; Start 01/25/20 at 17:15; Stop 01/25/20 at 17:16; Status DC Fentanyl Citrate (Fentanyl 2ml Vial) 100 mcg STK-MED ONCE .ROUTE ; Start 01/25/20 at 17:16; Stop 01/25/20 at 17:16; Status DC Dexamethasone Sodium Phosphate (Decadron) 4 mg STK-MED ONCE .ROUTE ; Start 01/25/20 at 17:16; Stop 01/25/20 at 17:17; Status DC Ondansetron HCl (Zofran) 4 mg STK-MED ONCE .ROUTE ; Start 01/25/20 at 17:16; Stop 01/25/20 at 17:17; Status DC Sodium Chloride (Normal Saline Flush) 3 ml QSHIFT PRN IV AFTER MEDS AND BLOOD DRAWS; Start 01/25/20 at 18:30 Oxytocin/Sodium Chloride 500 ml @ 125 mls/hr CONT PRN IV EXCESSIVE POST- BLEEDING; Start 01/25/20 at 18:30; Stop 01/26/20 at 02:29; Status DC Ibuprofen (Motrin) 800 mg PRN Q8HRS PRN PO INFLAMMATION Last administered on 01/27/20at 06:46; Start 01/25/20 at 18:30 Ondansetron HCl (Zofran) 4 mg PRN Q6HRS PRN IV NAUSEA/VOMITING; Start 01/25/20 at 18:30 Docusate Sodium (Colace) 100 mg PRN BID PRN PO HARD STOOL Last administered on 01/27/20at 08:23; Start 01/25/20 at 18:30 Al Hydroxide/Mg Hydroxide (Mylanta Plus Xs) 30 ml PRN Q4HRS PRN PO HEARTBURN / GAS; Start 01/25/20 at 18:30 Simethicone (Gas-X) 80 mg PRN AFTMEALHC PRN PO GAS / BLOATING; Start 01/25/20 at 18:30 Diphenhydramine HCl (Benadryl Oral Elixir) 12.5 mg PRN Q6HRS PRN PO ITCHING; Start 01/25/20 at 18:30 Ferrous Sulfate (Feosol) 325 mg BIDWMEALS PO Last administered on 01/27/20at 08:23; Start 01/26/20 at 08:00 Zolpidem Tartrate (Ambien) 5 mg PRN QHS PRN PO INSOMNIA, MAY REPEAT X1; Start 01/25/20 at 18:30 Oxycodone/ Acetaminophen (Percocet 5/325) 2 tab PRN Q4HRS PRN PO MODERATE PAIN, SEVERE PAIN Last administered on 01/27/20at 06:47; Start 01/25/20 at 18:30 Ketorolac Tromethamine (Toradol 30mg Vial) 30 mg PRN Q6HRS PRN IV PAIN Last administered on 01/26/20at 17:59; Start 01/25/20 at 18:30; Stop 01/30/20 at 18:29 Multivitamins (Thera M Plus) 1 tab DAILY PO Last administered on 01/27/20at 08:23; Start 01/26/20 at 09:00 Ketorolac Tromethamine (Toradol 30mg Vial) 30 mg PRN Q6HRS PRN IV PAIN; Start 01/25/20 at 18:45; Stop 01/25/20 at 18:36; Status DC Cefazolin Sodium/ Dextrose (Ancef 2gm Premix) 2 gm STK-MED ONCE IV ; Start 01/25/20 at 17:00; Stop 01/27/20 at 08:51; Status DC Exam Abd: soft, non tender, fundus firm Incision site: clean, dry and intact Assessment POD#2 s/p c/s Preeclampsia: improving Plan of Care: Continue current Tx, Mgmt SAUNDRA CELIS Jr, MD Jan 27, 2020 13:08
--- NOTE | 2020-01-27 15:08 | PATHOLOGY ---
[facility] Accession Number: [id number] . 01 Material submitted: . PART A: fallopian tube - RIGHT FALLOPIAN TUBE. Modifiers: right PART B: fallopian tube - LEFT FALLOPIAN TUBE. Modifiers: left . 01 Clinical history: . Repeat with tubal ligation . 02 Diagnosis: A. Right tubal ligation: - Segment of fallopian tube confirmed. . B. Left tubal ligation: - Segment of fallopian tube confirmed. (JPM:[facility]; 01/27/2020) S 01/27/2020 1303 Local . 02 Electronically signed: . Javier Ivey MD, Pathologist NPI- [id number] . 01 Gross description: . A. The specimen is received in formalin, labeled "Naylor, Luann, R tube" and consists of a nonfimbriated segment of pink-sherman fallopian tube measuring 1.4 cm in length and 0.3 cm in diameter. Sectioning reveals a central lumen and no gross lesions. The specimen is entirely submitted in A1. . B. The specimen is received in formalin, labeled "Naylor, Luann, L tube" and consists of a nonfimbriated segment of pink fallopian tube measuring 1.6 cm in length and 0.4 cm in diameter. Sectioning reveals a central lumen and no gross lesions. The specimen is entirely submitted in B1. (SDY; 01/26/2020) SYU/SYU 01/27/2020 1302 Local . 02 Pathologist provided ICD-10: O82 . 02 CPT . 692424, [id number] Specimen Comment: A courtesy copy of this report has been sent to [phone], [phone] Specimen Comment: [id number] Specimen Comment: Report sent to / DR DOMINGUEZ Performed at: 01 [facility] [address], [place], [place] [id number] MD Carlos Cardenas MD Phone: [phone] Performed at: [facility] [address] [place], [place] [id number] MD Javier Ivey MD Phone: [phone]
[2020-01-28 03:50] VITALS: BP 127/62
[2020-01-28] MEDS: oxyCODONE/APAP 5/325 1 TAB TABLET PO PRN ×2 (03:57→11:49)
[2020-01-28] MEDS: IBUPROFEN 400 MG TABLET. PO PRN (08:45)
[2020-01-28] MEDS: FERROUS SULFATE 325 MG TABLET. PO SCH (08:45)
--- NOTE | 2020-01-28 09:57 | PDOC3 ---
OB DISCHARGE SUMMARY DATE OF ADMISSION: 01/24/20 DATE OF DISCHARGE: 01/28/20 REASON FOR ADMISSION: Induction of labor (preeclampsia) INTRAPARTUM PROCEDURES: : Low Cerv Trans DISCHARGE DIAGNOSIS: Preclampsia DISCHARGE INFORMATION: Activity (ad leandro), Diet (regular), Instructions (pelvic rest x 6 wks, no driving x 2 wks, no lifting > 20 lbs x 4 wks) HOSPITAL COURSE gestation with preeclampsia delivered via section without complications. SAUNDRA CELIS Jr, MD Jan 28, 2020 09:57
[2020-01-28] MEDS ORDERED: OXYC1TAB15 PO (09:59)
[2020-01-28] MEDS ORDERED: DOCU-153 PO (09:59)
[2020-01-28] MEDS ORDERED: IBUP-1027 PO (09:59)
--- NOTE | 2020-01-28 10:00 | DISCH ---
DISCHARGE INSTRUCTIONS Condition on Discharge Condition on Discharge: Stable Activity After Discharge Activity Instructions for Disc: Activity as tolerated Lifting Instructions after Dis: No heavy lifting Driving Instructions after Dis: No driving for 2 weeks Diet after Discharge Diet after Discharge: Regular Contacting the DRShamir after DC Call your doctor for: Concerns you may have Follow-Up Follow up with: Dr. Parra in 2 wks SAUNDRA PARRA Jr, MD Jan 28, 2020 10:00
[2020-01-28 11:15] VITALS: BP 135/88
--- NOTE | 2020-01-28 11:30 | NUR ---
nurse's notes: dc instructions and prescriptions given to and discussed with patient. verbalized understanding.
== END 2020-01-28 12:05 | disposition home or self-care (01) | DRG 783 ==
LOC: OBSVTOIN 10:36 → 3 SO LND 10:36 → 3 NORTH 01-26 21:30
PROVIDERS: ADMIT Obstetrics & Gynecology; ATTEND Obstetrics & Gynecology
PROC: 3E0P7VZ Introduction of Hormone into Female Reproductive, Via Natural or Artificial Opening (ICD-10-PCS; 2020-01-24)
PROC: 10D00Z1 Extraction of Products of Conception, Low, Open Approach (ICD-10-PCS; principal; 2020-01-25)
PROC: 0UB70ZZ Excision of Bilateral Fallopian Tubes, Open Approach (ICD-10-PCS; 2020-01-25)
DX: O77.9 Labor and delivery complicated by fetal stress, unspecified (principal); O60.14X0 Preterm labor third trimester with preterm delivery third trimester, not applicable or unspecified; O14.94 Unspecified pre-eclampsia, complicating childbirth; O69.81X0 Labor and delivery complicated by cord around neck, without compression, not applicable or unspecified; Z20.828 Contact with and (suspected) exposure to other viral communicable diseases; Z3A.36 36 weeks gestation of pregnancy; Z30.2 Encounter for sterilization; Z37.0 Single live birth
CPT/HCPCS: 36415; 80053; 81001; 82247; 82570; 82803; 82962; 84030; 84156; 85007; 85025; 86592; 86850; 86900; 86901; 87086; 87426; 88302; 90746; 92585; J0690; J0702; J1100; J1885; J2274; J2370; J2405; J2590; J3010; J3430; J3475; J7120; G0378; Q0163; U0003-CS